=== PATIENT | male | born 1955 | race Caucasian/White ===

== ENCOUNTER → 2018-01-23 | Outpatient (CLI) | payer OTHER, BC ==
[~2018-01-23] MED LIST: ADDERALL5 MG PO; ANDROGEL75 GM TD; BENADRYL25 MG PO; COMBIVENT RESPIM4 GM IH; COMPAZINE10 MG PO; CORTEF10 MG PO; CORTEF5 M1 PO; DECADRON4 M1 PO; ERYTHROMYC1 APPLICAT BOTH EYES; HYDROCODON-ACE1 EAC7 PO; LEVAQUIN500 MG PO; MARINOL2.5 M1 PO; SYNTHROID75 MCG PO; VITAMIN D35000 UNIT PO; ZANTAC150 MG PO; ZOFRAN4 MG PO
== END | disposition home or self-care (01) ==
LOC: OPR 08:20 → EDSTATUS 09:00 → OPR 09:00
PROC: 0QB13ZX Excision of Sacrum, Percutaneous Approach, Diagnostic (ICD-10-PCS; principal; 2018-01-23)
DX: C79.51 Secondary malignant neoplasm of bone (principal); Z85.858 Personal history of malignant neoplasm of other endocrine glands; Z87.891 Personal history of nicotine dependence; Z80.0 Family history of malignant neoplasm of digestive organs
CPT/HCPCS: 77012; 85027; 85610; 85730; 88305; 88342 TC